=== PATIENT | female | born 2005 | race Hispanic/Latino ===

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

== ENCOUNTER 2024-03-01 12:18 | Outpatient (CLI) | payer OTHER | END 2024-03-01 12:19 | disposition home or self-care (01) | LOC: CSHULT 12:18 | PROVIDERS: ATTEND Family Medicine | DX: N92.1 Excessive and frequent menstruation with irregular cycle (principal); R10.2 Pelvic and perineal pain | CPT/HCPCS: 76856 ==